=== PATIENT | male | born 1965 | race Caucasian/White ===

== ENCOUNTER → 2017-03-20 | Outpatient (CLI) | payer MEDICARE ==
[2017-03-20 09:18] LABS: CH 30.9; HCT 40.2 % (39.0-53.0); HDW 3.13; HGB 14.4 gm/dL (13.0-17.5); MCV 86.2 fL (80.0-100.0); Mean Platelet Volume 8.6; RBC 4.66 m/uL (4.30-5.90); RDW 13.5 % (11.5-15.5); WBC 5.5 k/uL (3.8-10.6)
[2017-03-20 12:25] LABS: ALT 75 U/L (21-72); AST 40 U/L (17-59); Alkaline Phosphatase 113 U/L (38-126); Anion Gap 10 mmol/L; Blood Urea Nitrogen 15 mg/dL (9-20); Calcium 9.2 mg/dL (8.4-10.2); Carbon Dioxide 27 mmol/L (22-30); Chloride 102 mmol/L (98-107); Glucose 122 mg/dL (74-99); Non-African American GFR(MDRD) >60 (>60 ml/min/1.73 sqM); Potassium 3.6 mmol/L (3.5-5.1); Sodium 139 mmol/L (137-145); Total Bilirubin 0.6 mg/dL (0.2-1.3)
[2017-03-20 13:30] LABS: Vitamin B12 291 pg/mL (239-931)
== END | disposition home or self-care (01) ==
LOC: LABWHC1 08:45
PROVIDERS: ATTEND Psychiatry & Neurology Pain Medicine
DX: R41.3 Other amnesia (principal)
CPT/HCPCS: 36415; 80053; 82306; 82607; 82746; 83036; 83090; 84439; 84443; 84481; 85027

== ENCOUNTER → 2017-03-25 | Outpatient (CLI) | payer MEDICARE ==
--- NOTE | 2017-03-25 12:08 | MR ---
EXAMINATION TYPE: MR brain wo con DATE OF EXAM: 03/25/2017 12:04 PM COMPARISON: NONE HISTORY: Memory loss FINDINGS: The ventricles, basal cisterns and sulci overlying the cerebral convexities are mildly enlarged. There is evidence of mild periventricular white matter ischemic demyelination. Remote deep white matter insults are also noted. No acute edema is seen on diffusion weighted imaging. There is no evidence for midline shift or mass effect. Acute intracranial hemorrhage or extra-axial collection is not evident. The paranasal sinuses and mastoid air cells are well-aerated. Minimal mucoperiosteal thickening of th e maxillary sinuses. IMPRESSION: Age-related atrophic and chronic small vessel ischemic change. No acute intracranial process at this time.
== END | disposition home or self-care (01) ==
LOC: RADMRIMAIN 10:46
PROVIDERS: ATTEND Psychiatry & Neurology Pain Medicine
DX: G31.9 Degenerative disease of nervous system, unspecified (principal); I67.82 Cerebral ischemia
CPT/HCPCS: 70551

== ENCOUNTER → 2017-10-03 | Outpatient (CLI) | payer MEDICARE ==
--- NOTE | 2017-10-03 12:00 | PN ---
PROGRESS NOTE A 51-year-old gentleman who has been [facility] for treatment of severe obstructive sleep apnea-hypopnea syndrome. Recently, he had a polysomnogram and titration and I discussed results of the sleep studies with patient and family. Polysomnogram showed severe sleep apnea. Apnea-hypopnea index 60.2 with severe oxygen desaturation to 70%. Titration did not go very well. Patient continued to have some abnormalities of respiration. I ordered for him a machine with automatic regimen with a pressure range 5 to 20. Patient came for followup visit to check his unit and make any adjustments. I checked his CPAP unit. Most of the time, pressure in the range of 18.5 cm of water. It is significant leak from the mask is 86 L/minute and according to patient's , she hears that he has significant leak from his mask and sometimes has episodes of stopped breathing during the sleep. Apnea-hypopnea index is 9.2. I related central apneas 0.3 and total apnea index 6.7. [place] Sleepiness Scale today is 11. MEDICATIONS: Omeprazole, fluoxetine, metoprolol, lisinopril, amlodipine, Lyrica, cyclobenzaprine, morphine, hydrocodone, acetaminophen, ibuprofen, metformin. PHYSICAL EXAM: Patient in no distress. BP 141/78, HR 86, RR 16, weight 298, temp 97.9, oxygen saturation at room air 94%. Moderately low position of soft palate. ABDOMEN: Obese. Neck Supple, no JVD. Thyroid is not palpable. LUNGS Clear to percussion and to auscultation. Good air exchange. No wheezing or rhonchi. HEART S1, S2 regular. No murmurs, gallops, or rubs. ABDOMEN Soft and nontender. Bowel sounds are present. No organomegaly appreciated. EXTREMITIES No clubbing or cyanosis. POWDER WORKER Awake, alert, and oriented X3. Cranial nerves 2 to 7 intact. There is no fasciculation or atrophy. noted. No focal deficits observed. IMPRESSION: 1. Severe obstructive sleep apnea-hypopnea syndrome. Patient demonstrated great compliance of using CPAP equipment, usage for more than 4 hours, 28/30 nights, but there is a significant leak from the mask and he still had some has some abnormalities of breathing during the sleep. Also patient experiencing sometimes dryness in his mouth. 2. Obesity. 3. Hypertension. 4. Diabetes mellitus. 5. Depression. 6. Back problems. 7. Status post vasectomy. 8. Status post tonsillectomy. PLAN: 1. Patient will continue to use CPAP equipment every night for the whole night. 2. We will try to fit patient with a different style of mask. I think that we may use nasal mask, if necessary with a chin strap to be sure that there is no significant leak. 3. Humidity presently at the level of 5, which I think is acceptable and I think dryness most probably related to the leak. 4. Losing weight. 5. No driving if feeling sleepiness. Thank you very much for allowing me to participate in the management of your patient. Sincerely, Mehran Goldstein MD, PhD, FAASM Diplomat of [place] [employer] [place] [employer] Ems Educator of [facility] [place] DIOGO / REENA: [id number] /
== END | disposition home or self-care (01) ==
LOC: SLEEP 10:40
PROVIDERS: ATTEND Internal Medicine
DX: G47.33 Obstructive sleep apnea (adult) (pediatric) (principal); E66.9 Obesity, unspecified; I10 Essential (primary) hypertension; E11.9 Type 2 diabetes mellitus without complications; F32.9 Major depressive disorder, single episode, unspecified; Z90.89 Acquired absence of other organs; Z98.52 Vasectomy status; Z79.899 Other long term (current) drug therapy; Z79.891 Long term (current) use of opiate analgesic; Z79.1 Long term (current) use of non-steroidal anti-inflammatories (NSAID); Z79.84 Long term (current) use of oral hypoglycemic drugs

== ENCOUNTER → 2017-11-21 | Outpatient (CLI) | payer MEDICARE ==
--- NOTE | 2017-11-21 15:12 | PN ---
PROGRESS NOTE DATE OF SERVICE: 11/21/2017 A 52-year-old gentleman who has been followed in the [facility] for treatment of obstructive sleep apnea-hypopnea syndrome. Patient continued to use his CPAP equipment without any significant problems at the present time. He used equipment every night for the whole night. No snoring with the machine. [place] Sleepiness Scale is still high, it is 14. I checked CPAP unit. CPAP pressure between 5 and 20 cm of water, usage is 30/30 for more than 4 hours. Apnea-hypopnea index for the last months is around 5-1/2 and fall last night is only 1. Leak is 37 L/minute, which is borderline during the previous visit was 86 L/minute. MEDICATIONS: Omeprazole, fluoxetine, metoprolol, lisinopril, amlodipine, Lyrica, cyclobenzaprine, morphine, hydrocodone, acetaminophen, ibuprofen, metformin. PHYSICAL EXAM: Patient in no distress. BP 144/78, HR 100, RR 14, height 5 feet 11-1/2, weight 313.6, BMI 43.0, temperature 97.9 oxygen saturation at room air 95%. OROPHARYNX: Extremely low position of soft palate. ABDOMEN: Obese. Neck Supple, no JVD. Thyroid is not palpable. LUNGS Clear to percussion and to auscultation. Good air exchange. No wheezing or rhonchi. HEART S1, S2 regular. No murmurs, gallops, or rubs. EXTREMITIES No clubbing or cyanosis. COMBINE INSPECTOR Awake, alert, and oriented X3. Cranial nerves 2 to 7 intact. There is no fasciculation or atrophy. noted. No focal deficits observed. IMPRESSION: 1. Severe obstructive sleep apnea-hypopnea syndrome. Patient demonstrated good compliance with treatment benefitting from treatment. 2. Diabetes mellitus. 3. Hypertension. 4. Obesity. 5. Depression. 6. Back problem. 7. Status post vasectomy. 8. Status post tonsillectomy. PLAN: 1. Continue treatment with CPAP every night for the whole night with the same regimen. 2. Aggressive losing weight program. 3. Sleep hygiene with regular time in bed for at least 8 hours. 4. No driving if feeling any sleepiness. Thank you very much for allowing me to participate in the management of your patient. Sincerely, Mehran Goldstein MD, PhD, FAASM Diplomat of [place] [employer] [place] [employer] Claim Clinician of [facility] [place] 1. Follow-up visit in 10 months. MMODL / IJN: [id number] /
== END | disposition home or self-care (01) ==
LOC: SLEEP 13:08
PROVIDERS: ATTEND Internal Medicine
DX: G47.33 Obstructive sleep apnea (adult) (pediatric) (principal); E11.9 Type 2 diabetes mellitus without complications; I10 Essential (primary) hypertension; E66.9 Obesity, unspecified; F32.9 Major depressive disorder, single episode, unspecified; Z90.89 Acquired absence of other organs; Z68.41 Body mass index [BMI] 40.0-44.9, adult; Z79.899 Other long term (current) drug therapy; Z79.891 Long term (current) use of opiate analgesic; Z79.1 Long term (current) use of non-steroidal anti-inflammatories (NSAID)

== ENCOUNTER → 2017-12-31 | Outpatient (CLI) | payer MEDICARE ==
[2017-12-31 11:37] LABS: Basophils % (A) 0 %; Eosinophils # (A) 0.1 k/uL (0-0.7); Eosinophils % (A) 2 %; HCT 40.1 % (39.0-53.0); HGB 14.1 gm/dL (13.0-17.5); Lymphocytes # (A) 1.4 k/uL (1.0-4.8); Lymphocytes % (A) 26 %; MCH 30.1 pg (25.0-35.0); MCHC 35.1 g/dL (31.0-37.0); MCV 85.6 fL (80.0-100.0); Mean Platelet Volume 8.6; Monocytes # (A) 0.2 k/uL (0-1.0); Monocytes % (A) 4 %; Neutrophils # (A) 3.5 k/uL (1.3-7.7); Neutrophils % (A) 66 %; Platelet Count 164 k/uL (150-450); RBC 4.68 m/uL (4.30-5.90); RDW 13.6 % (11.5-15.5); WBC 5.2 k/uL (3.8-10.6)
[2017-12-31 11:49] LABS: ALT 52 U/L (21-72); AST 35 U/L (17-59); Alkaline Phosphatase 111 U/L (38-126); Anion Gap 12 mmol/L; Blood Urea Nitrogen 18 mg/dL (9-20); Calcium 9.4 mg/dL (8.4-10.2); Carbon Dioxide 31 mmol/L (22-30); Chloride 99 mmol/L (98-107); Cholesterol 165 mg/dL (<200); Glucose 123 mg/dL (74-99); HDL Cholesterol 39 mg/dL (40-60); LDL Cholesterol,Calculated 94 mg/dL (0-99); Potassium 4.4 mmol/L (3.5-5.1); Sodium 142 mmol/L (137-145); Total Bilirubin 0.5 mg/dL (0.2-1.3); Total Protein 6.8 g/dL (6.3-8.2); Triglycerides 158 mg/dL (<150)
[2017-12-31 12:05] LABS: T4, Free (Free Thyroxine) 1.07 ng/dL (0.78-2.19)
[2017-12-31 12:19] LABS: PSA Annual Screen 0.48 ng/mL (0.00-4.00)
[2017-12-31 18:49] LABS: Hemoglobin A1C 6.3 % (4.0-6.0)
== END | disposition home or self-care (01) ==
LOC: LABWHC1 10:49
PROVIDERS: ATTEND Internal Medicine
DX: E78.00 Pure hypercholesterolemia, unspecified (principal); I10 Essential (primary) hypertension; E11.9 Type 2 diabetes mellitus without complications; E55.9 Vitamin D deficiency, unspecified; Z12.5 Encounter for screening for malignant neoplasm of prostate
CPT/HCPCS: 84439; 80061; 80053; 84443; 85025; 82306; 82043; 82570; 83036; 36415; G0103

== ENCOUNTER → 2018-01-09 | Outpatient (CLI) | payer MEDICARE ==
--- NOTE | 2018-01-09 10:22 | ECHOF ---
Referral Reason:R60.0 edema of lower extremity MEASUREMENTS -------- HEIGHT: 182.9 cm WEIGHT: 140.6 kg BP: 139/89 RVIDd: 3.7 cm (< 3.3) IVSd: 1.4 cm (0.6 - 1.1) LVIDd: 4.6 cm (3.9 - 5.3) LVPWd: 1.4 cm (0.6 - 1.1) IVSs: 1.6 cm LVIDs: 3.5 cm LVPWs: 1.6 cm LAESV Index (A-L): 19.14 ml/m Ao Diam: 3.7 cm (2.0 - 3.7) AV Cusp: 2.2 cm (1.5 - 2.6) LA Diam: 2.7 cm (2.7 - 3.8) MV EXCURSION: 16.659 mm (> 18.000) MV EF SLOPE: 96 mm/s (70 - 150) EPSS: 0.9 cm MV E Angel: 0.79 m/s MV DecT: 197 ms MV A Angel: 0.73 m/s MV E/A Ratio: 1.08 RAP: 5.00 mmHg RVSP: 37.85 mmHg FINDINGS -------- Sinus rhythm. This was a technically adequate study. The left ventricular size is normal. There is moderate concentric left ventricular hypertrophy. O verall left ventricular systolic function is low-normal with, an EF between 50 - 55 %. The right ventricle is mildly enlarged. Normal LA size by volume 22+/-6 ml/m2. The right atrium is normal in size. The aortic valve is trileaflet, and appears structurally normal. No aortic stenosis or regurgitation. The mitral valve leaflets are mildly thickened. There is trace mitral regurgitation. Trace tricuspid regurgitation present. There is borderline pulmonary hypertension. The right vent ricular systolic pressure, as measured by Doppler, is 37.85mmHg. Trace/mild (physiologic) pulmonic regurgitation. The aortic root size is normal. IVC Not well visulized. There is no pericardial effusion. CONCLUSIONS -------- 1. Sinus rhythm. 2. This was a technically adequate study. 3. The left ventricular size is normal. 4. There is moderate concentric left ventricular hypertrophy. 5. Overall left ventricular systolic function is low-normal with, an EF between 50 - 55 %. 6. The right ventricle is mildly enlarged. 7. Normal LA size by volume 22+/-6 ml/m2. 8. The aortic valve is trileaflet, and appears structurally normal. No aortic stenosis or regurgitati on. 9. The mitral valve leaflets are mildly thickened. 10. There is trace mitral regurgitation. 11. Trace tricuspid regurgitation present. 12. There is borderline pulmonary hypertension. 13. The right ventricular systolic pressure, as measured by Doppler, is 37.85mmHg. 14. Trace/mild (physiologic) pulmonic regurgitation. 15. The aortic root size is normal. 16. IVC Not well visulized. 17. There is no pericardial effusion. SCIENTIFIC MANAGER: Matthew Zambrano RDCS
== END | disposition home or self-care (01) ==
LOC: RADECHMAIN 07:27
PROVIDERS: ATTEND Internal Medicine
DX: R60.0 Localized edema (principal)
CPT/HCPCS: 93306

== ENCOUNTER → 2018-03-07 | Outpatient (CLI) | payer MEDICARE | END | disposition home or self-care (01) | LOC: LABWHC1 12:07 | PROVIDERS: ATTEND Family Medicine | DX: Z13.88 Encounter for screening for disorder due to exposure to contaminants (principal) | CPT/HCPCS: 36415; 83655 ==

== ENCOUNTER → 2018-04-28 | Outpatient (CLI) | payer MEDICARE ==
--- NOTE | 2018-04-28 12:17 | MR ---
EXAMINATION TYPE: MR brain wo con DATE OF EXAM: 04/28/2018 COMPARISON: 03/25/2017 HISTORY: Head injury, unspecified T1-weighted sagittal, T2, FLAIR, and diffusion axial, and T2 coronal coronal views of the brain are s ubmitted. There is no evidence of acute ischemia. White matter: There are approximately 10 areas of abnormal signal scattered throughout the white nash er bilaterally. All areas measure less than 5 mm. No callosal lesions. No lesions perpendicular ventr icular system Changes of chronic sinusitis and nasal septal deviation noted. Craniocervical junction maintained. Partially empty sella turcica incidentally noted. Stable bilatera l parotid nodularity. No cerebellopontine angle mass. IMPRESSION: 1. No acute intracranial process. 2. Minimal nonspecific white matter changes can be seen with migraine headaches hypertension, demyeli nating disease or remote microvascular ischemia. Findings are stable relative to the prior exam. 3. Mild chronic sinusitis. 4. Stable bilateral small parotid gland nodules
== END | disposition home or self-care (01) ==
LOC: RADMRIMAIN 10:10
PROVIDERS: ATTEND Psychiatry & Neurology Pain Medicine
DX: R90.82 White matter disease, unspecified (principal)
CPT/HCPCS: 70551

== ENCOUNTER → 2018-05-01 | Day surgery (SDC) | payer MEDICARE ==
[2018-04-28 11:49] VITALS: BMI 41.9
[~2018-05-01] MED LIST: SODIUM CHLORIDE 0.9% 1,000 ML IV SCH; SODIUM CHLORIDE 0.9% 500 ML IV ONE
[2018-05-01 08:37] VITALS: BP 129/66; PULSE 70; RESP 16; TEMP 98.1
--- NOTE | 2018-05-01 14:49 | P.PCN ---
Preoperative Diagnosis: Indication for the procedure Recurrent syncope Twelve-lead ECG shows sinus rhythm with normal LA narrow QRS normal ST segments no epsilon waves normal QT interval no delta waves normal ST segments Tilt table test performed per protocol Baseline blood pressure 137/65 mmHg Baseline heart rate 66 beats a minute Patient was tilted upright at an angle of 70 per protocol. There is no change in blood pressure heart rate and he remained completely asymptomatic through the procedure the only time he was lightheaded was when he was raised upright to the 70 position there is no change in heart or blood pressure and no orthostasis noted Impression Normal twelve-lead ECG Normal heart rate and blood pressure response to upright tilting
== END | disposition home or self-care (01) ==
LOC: CATHEP 07:55
PROVIDERS: ATTEND Internal Medicine Clinical Cardiac Electrophysiology
DX: R55 Syncope and collapse (principal)
CPT/HCPCS: 93660

== ENCOUNTER → 2020-04-28 | Outpatient (CLI) | payer MEDICARE ==
[~2020-04-28] MED LIST changes: +IODINE/POTASS IOD (LUGOLS) BOTTLE TOPICAL ONE; -SODIUM CHLORIDE 0.9% 1,000 ML IV SCH; -SODIUM CHLORIDE 0.9% 500 ML IV ONE
--- NOTE | 2020-04-29 07:37 | NM ---
EXAMINATION TYPE: NM DatScan Brain SPECT DATE OF EXAM: 04/28/2020 COMPARISON: NONE HISTORY: Tremors TECHNIQUE: 10 drops of Lugol's solution was administered 1 hour prior to injection as a thyroid bloc reji agent. After the administration of 4.46 mCi I-123 Ioflupane DaTscan. Images obtained 3 hours p ost injection. SPECT images of the brain were acquired with axial and coronal reconstructions. FINDINGS: The axial SPECT images demonstrate normal background activity. Accounting for head tilt, t here appears to be slight asymmetrically blunted comma-shaped appearance of the left corpus striatum. IMPRESSION: Slightly blunted striatal activity on the left may indicate early changes of idiopathic P arkinson's disease or Parkinsonian syndrome.
== END | disposition home or self-care (01) ==
LOC: RADNMMAIN 10:33
PROVIDERS: ATTEND Psychiatry & Neurology Pain Medicine
DX: R93.89 Abnormal findings on diagnostic imaging of other specified body structures (principal); G25.0 Essential tremor
CPT/HCPCS: 78803; A9584